=== PATIENT | male | born 1945 | race Caucasian/White ===

== ENCOUNTER → 2018-07-18 | Outpatient (CLI) | payer OTHER ==
--- NOTE | 2018-07-18 16:39 | PCVCIMAG ---
APPROVED REPORT Study performed: 07/18/2018 13:06:58 Exam: Stress Echocardiogram Indication: Abn EKG,pre op clearance,htn Patient Location: Echo lab Room #: 2 Ht: 6 ft 1 in HR: 54 bpm BP: 162/86 mmHg Rhythm: RBBB,bradycardia Medical History Medical History: RBBB,htn,hlp Cardiac Risk Factors: HTN, Hyperlipidemia Exercise History: Indeterminate Procedure The patient underwent an Exercise Stress Test using the Stanton Protocol. Blood pressure, heart rate, and EKG were monitored. An Echocardiogram was performed by technician assistant in four stages in quad fashion. At peak stress, four selected images were obtained and placed side by side with resting images for comparison. Stress Test Details Stress Test: Exercise stress testing was performed using a Stanton protocol. HR Resting HR: 54 bpmMax Heart Rate (APMHR): 149 bpm Max HR Achieved: 139 bpmTarget HR (85% APMHR): 126 bpm % of APMHR: 93 Recovery HR: 93 bpm HR response to stress: Normal HR response to stress BP Resting BP: 162/86 mmHg Max BP: 204/68 mmHg Recovery BP: 146/82 mmHg BP response to stress: Normal blood pressure response to stress. ECG Resting ECG: RBBB with frequent PVCs Stress ECG: RBBB,Rare PVCs ST Change: Non-ischemic Arrhythmia: Frequency of PVCs is overridden with an increased heart rate Recovery ECG: Sinus Rhythm, RBBB Recovery ST Change: Non-ischemic Recovery Arrhythmia: moderate PVCs Clinical Reason for Termination: Maximal effort Stress Symptoms: dyspnea,fatigue Exercise duration: 6 min 00 sec Highest Stage Achieved: Stage 2: 2.5 mph at 12% grade. Exercise capacity: 7.0 METs Overall Exercise Capacity for Age: Poor Scale: Sedentary Angina Score: None No complications. Stress ECG Conclusion The patient exercised according to the STANTON protocol for 6:00 mins; achieving a work level of 7.0 METS. The resting heart rate of 54 bpm ace to a maximum heart rate of 139 bpm. This value represent 93% of the maximal, age-predicted heart rate. The resting blood pressure of 162/86 mmHg, ace to a maximum blood pressure of 204/68mmHg. The exercise test was stopped due to fatigue. Pre-Stress Echo The resting Echocardiogram showed normal left ventricular contractility with an estimated Ejection Fraction of about 55-60%. Normal wall motion in all segments on baseline images. Post-Stress Echo The stress Echocardiogram showed normal left ventricular contractility with an estimated Ejection Fraction of about 65-70%. Normal augmentation of wall motion in all segments on post stress images. Clinical No clinical or ECG evidence for ischemia. Conclusion Clinical Response: Non-ischemic Exercise Capacity: Below Average Stress ECG Response: Non-ischemic Stress Echo Images: Non-ischemic No clinical, EKG or echocardiographic evidence for ischemia. No echocardiographic evidence for exercise induced ischemia. Normal stress echocardiogram with maximal exercise stress. <Conclusion> No clinical, EKG or echocardiographic evidence for ischemia. No echocardiographic evidence for exercise induced ischemia. Normal stress echocardiogram with maximal exercise stress.
== END | disposition home or self-care (01) ==
LOC: PCVCIMAG 13:00
PROVIDERS: ATTEND Internal Medicine Cardiovascular Disease
DX: I49.9 Cardiac arrhythmia, unspecified (principal); I44.7 Left bundle-branch block, unspecified; I45.10 Unspecified right bundle-branch block; R94.31 Abnormal electrocardiogram [ECG] [EKG]; I10 Essential (primary) hypertension
CPT/HCPCS: 93325; 93351

== ENCOUNTER → 2019-07-07 | Outpatient (CLI) | payer OTHER | END | disposition home or self-care (01) | LOC: PCVCCLINIC 16:37 | PROVIDERS: ATTEND Internal Medicine Cardiovascular Disease | DX: I10 Essential (primary) hypertension (principal); R06.02 Shortness of breath; E78.00 Pure hypercholesterolemia, unspecified; I45.10 Unspecified right bundle-branch block; R93.1 Abnormal findings on diagnostic imaging of heart and coronary circulation; I51.89 Other ill-defined heart diseases; R53.83 Other fatigue; E78.5 Hyperlipidemia, unspecified; Z87.891 Personal history of nicotine dependence; Z79.899 Other long term (current) drug therapy; Z90.49 Acquired absence of other specified parts of digestive tract; Z88.2 Allergy status to sulfonamides | CPT/HCPCS: 93005; G0463 ==